=== PATIENT | female | born 2005 | race Caucasian/White ===

== ENCOUNTER 2024-10-20 16:56 | Emergency (ER) | payer OTHER ==
[~2024-10-20] VITALS: Ht 160 cm; Wt 54.7 kg
[2024-10-20] MEDS ORDERED: ETON1VAG7 PV (17:05)
[2024-10-20] MEDS: ASPIRIN 325 MG TAB PO ONE (20:00)
[2024-10-20 20:17] LABS: BASO # 0.0 10^3/uL (0.0-0.2); BASO % 0.7 % (0.0-1.0); EOS # 0.2 10^3/uL (0.0-0.5); EOS % 2.9 % (0.0-3.0); LYMPH # 2.2 10^3/uL (1.5-5.0); LYMPH % 38.8 % (24.0-44.0); MONO # 0.3 10^3/uL (0.0-0.8); MONO % 5.4 % (2.0-8.0); NEUTROPHILS # 2.9 10^3/uL (1.5-8.5); NEUTROPHILS % 52.0 % (36.0-66.0); PLATELET COUNT, AUTOMATED 289 10^3/uL (150-450)
[2024-10-20 20:32] LABS: D-DIMER QUANT < 0.27 ug/mL (<0.5); INR 0.96
[2024-10-20 20:53] LABS: CK-MB VALUE MASS < 1.0 NG/ML (<3.6)
[2024-10-20 20:55] LABS: ALT/SGPT 20 U/L (7.0-40); AST/SGOT 22 U/L (<34); CALCIUM LEVEL 9.2 MG/DL (8.5-10.1); CARBON DIOXIDE LEVEL 26 MMOL/L (20-31); CHLORIDE LEVEL 105 MMOL/L (98-107); CREATININE FOR GFR 0.69 MG/DL (0.55-1.30); GLOMERULAR FILTRATION RATE > 90.0 (>60); POTASSIUM SERUM 4.1 MMOL/L (3.5-5.1); SODIUM LEVEL 142 MMOL/L (136-145)
[2024-10-20 20:58] LABS: CPK CREATINE PHOSPHOKINASE 122 U/L (34-145)
[2024-10-20 21:03] LABS: HCG, SERUM QUALITATIVE NEGATIVE (NEGATIVE)
[2024-10-20 22:19] LABS: CK-MB VALUE MASS < 1.0 NG/ML (<3.6)
[2024-10-20 22:28] LABS: CPK CREATINE PHOSPHOKINASE 114 U/L (34-145)
[2024-10-20 23:00] VITALS: BP 107/70; TEMP 98.5; O2SAT 99
== END 2024-10-20 23:16 | disposition home or self-care (01) ==
LOC: M ED 16:56
DX: R07.9 Chest pain, unspecified (principal); Z79.899 Other long term (current) drug therapy